=== PATIENT | male | born 1960 | race African-American/Black ===

== ENCOUNTER → 2017-07-02 | Outpatient (CLI) | payer OTHER ==
[~2017-07-02] MED LIST: ACYCLOVIR 400400 MG PO; CARVEDILOL25 MG PO; DEMADEX20 MG PO; GEMFIBROZIL 60600 MG PO; LISINOPRIL10 MG PO; LOPRESSOR 50 MG50 M1 PO; LORATIDINE 10 M10 M1 PO; PERCOCET 7.5-31 EACH PO; ZANTAC 150MG T150 M1 PO
== END ==
LOC: RAD 16:41
DX: R06.02 Shortness of breath (principal)

== ENCOUNTER 2017-07-03 17:37 | Emergency (ER) | payer OTHER ==
[~2017-07-03] VITALS: Ht 165.1 cm; Wt 77.1 kg
--- NOTE | ~2017-07-03 | EKG ---
[address] [place] [address] ELECTROCARDIOGRAM REPORT Name: AYANNA DE Room #: PRE M.R.#: [id number] Admission: Attend Phys: Discharge: Date of : 60 Report #: [id number] THIS REPORT FOR: //name// [facility] ED Test Date: 2017-07-03 Test Time: 17:45:37 Pat Name: AYANNA ED Department: Room: Gender: M [employer] Operator: MZOOTalib : 1960 Requested By: Ronni Og Order Number: [id number] MD: Measurements Intervals [place] Rate: 95 P: 11 VA: 164 QRS: -19 QRSD: 79 T: 43 QT: 344 QTc: 433 Interpretive Statements Sinus rhythm Inferior infarct, old Compared to ECG 09/17/2013 14:39:41 Left-axis deviation no longer present Myocardial infarct finding still present [email or web address] By: 44 44 Epiphany Epiphany, MD /EPI
[~2017-07-03 17:37] MED LIST changes: -ACYCLOVIR 400400 MG PO; -PERCOCET 7.5-31 EACH PO
[2017-07-03] MEDS ORDERED: ACYCLOVIR 400400 MG PO (18:53)
[2017-07-03] MEDS ORDERED: PERCOCET 7.5-31 EACH PO (18:53)
== END 2017-07-03 19:06 | disposition home or self-care (01) ==
LOC: ER 17:37
DX: B02.9 Zoster without complications (principal); I12.9 Hypertensive chronic kidney disease with stage 1 through stage 4 chronic kidney disease, or unspecified chronic kidney disease; N18.9 Chronic kidney disease, unspecified; F17.210 Nicotine dependence, cigarettes, uncomplicated; Z86.73 Personal history of transient ischemic attack (TIA), and cerebral infarction without residual deficits; Z99.2 Dependence on renal dialysis; Z88.2 Allergy status to sulfonamides

== ENCOUNTER → 2017-12-25 | Outpatient (CLI) | payer OTHER ==
[~2017-12-25] MED LIST changes: +ACYCLOVIR 400400 MG PO; +ALBUTEROL2.5 MG/31 INH; +ANORO ELLIPTA1 EACH INH; +CENTRUM SILVER1 EAC4 PO; +FLONASE 0.05%50 MCG NASAL; +HYDRALAZINE 2525 MG PO; +LYRICA 50 MG50 MG PO; +NEURONTIN 300300 M1 PO; +PERCOCET 7.5-31 EACH PO; +ROPINIROLE HCL2 MG PO; +TRAZODONE HCL100 MG PO; +VENTOLIN HFA 1818 GM INH; +VISTARIL 25 MG25 M1 PO; +XANAX 0.5 MG0.5 MG PO
--- NOTE | ~2017-12-25 | 2DMMODE ---
[facility] [place] [address] 2 D/M-MODE ECHOCARDIOGRAM Name: AYANNA DE Room #: REG [facility]#: [id number] Admission: 12/25/17 Attend Phys: Geraldo White MD Discharge: Date of : 60 Date of Service: 12/25/17 1125 Report #: [id number] THIS REPORT FOR: //name// APPROVED REPORT Study performed: 12/25/2017 08:35:51 EXAM: Comprehensive 2D, Doppler, and color-flow Echocardiogram Patient Location: Echo lab Status: routine BSA: 1.85 HR: 91 bpm BP: 162/91 mmHg Rhythm: NSR Other Information Study Quality: Adequate Indications Pre-Op 2D Dimensions RVDd: 41.39 mm LVEF(%): 50.38 (>50%) IVSd: 12.97 (7-11mm) LVOT Diam: 23.30 (18-24mm) LVDd: 62.82 mm PWd: 11.11 (7-11mm) Ascending Ao: 39.00 (22-36mm) LVDs: 46.37 (25-40mm) Aortic Root: 38.21 mm Hull's LVEF: 50.38 % Volumes Left Atrial Volume (Systole) Single Plane 4CH: 69.86 mL Single Plane 2CH: 74.83 mL Aortic Valve AoV Peak Daniel.: 1.63 m/s AO Peak Gr.: 10.60 mmHg LVOT Max P.23 mmHg LVOT Max V: 1.14 m/s JOVANY Vmax: 2.99 cm2 Mitral Valve E/A Ratio: 0.8 MV Decel. Time: 143.95 ms MV E Max Daniel.: 0.93 m/s [facility] [address] [place] [address] 2 D/M-MODE ECHOCARDIOGRAM Name: AYANNA DEITH Room #: REG [facility]#: [id number] Admission: 12/25/17 Attend Phys: Geraldo White MD Discharge: Date of : 60 Date of Service: 12/25/17 1125 Report #: [id number] A Daniel.: 1.11 m/s MV PHT: 41.74 ms IVRT: 143.02 ms Pulmonary Valve PV Peak Daniel.: 0.97 m/s PV Peak Gr.: 3.79 mmHg Pulmonary Vein P Vein S: 0.82 m/s P Vein D: 0.49 m/s P Vein S/D Ratio: 1.67 Tricuspid Valve TR Peak Daniel.: 2.27 m/s RAP Estimate: 5.00 mmHg TR Peak Gr.: 20.62 mmHg PA Pressure: 26.00 mmHg Left Ventricle Left ventricle is mildly dilated. Mild concentric left ventricular hypertrophy. Left ventricular systolic function is moderately decreased. LVEF is 35-40%. Grade I - abnormal relaxation pattern. Right Ventricle Right ventricle is at the upper limits of normal. The right ventricular systolic function is normal. Atria Left atrium is moderately dilated. Right atrium is at the upper limits of normal. Aortic Valve Aortic valve is calcified. Trace aortic regurgitation. There is no aortic valvular stenosis. Mitral Valve There is mitral annular calcification. Mild mitral regurgitation. No evidence of mitral valve stenosis. Tricuspid Valve The tricuspid valve is normal in structure. Trace tricuspid regurgitation. Estimated PAP 26 mmHg. Pulmonic Valve Pulmonic valve is not well visualized. There is no pulmonic valvular regurgitation. [facility] [address] [place] [address] 2 D/M-MODE ECHOCARDIOGRAM Name: AYANNA DE Room #: REG [facility]#: [id number] Admission: 12/25/17 Attend Phys: Geraldo White MD Discharge: Date of : 60 Date of Service: 12/25/17 1125 Report #: [id number] Great Vessels Aortic root is borderline dilated. IVC is normal in size and collapses >50% with inspiration. Pericardium There is no pericardial effusion. <Conclusion> Left ventricle is mildly dilated. Mild concentric left ventricular hypertrophy. Left ventricular systolic function is moderately decreased. Grade I - abnormal relaxation pattern. Right ventricle is at the upper limits of normal. Left atrium is moderately dilated. Trace aortic regurgitation. Mild mitral regurgitation. Trace tricuspid regurgitation. Estimated PAP 26 mmHg. <ELECTRONICALLY SIGNED> By: Geraldo White MD 12/25/17 1125 24 Geraldo White MD /INF
== END ==
LOC: NUC 06:28
DX: Z01.810 Encounter for preprocedural cardiovascular examination (principal); I10 Essential (primary) hypertension; E78.5 Hyperlipidemia, unspecified; J44.9 Chronic obstructive pulmonary disease, unspecified; F17.200 Nicotine dependence, unspecified, uncomplicated; Z88.2 Allergy status to sulfonamides; Z88.0 Allergy status to penicillin